=== PATIENT | female | born 1970 | race Caucasian/White ===

== ENCOUNTER 2018-09-03 09:21 | Day surgery (SDC) | payer OTHER ==
[2018-09-03] MEDS: CEFAZOLIN 2 GM/50 ML (PMX) 50 ML IVPB (11:44)
[2018-09-03] MEDS ORDERED: MIDAZOLAM 1 MG/ML 2 ML INJ (11:45)
[2018-09-03] MEDS ORDERED: FENTAnyl 50 MCG/ML VIAL (11:45)
[2018-09-03] MEDS ORDERED: BUPIVACAINE 0.5% (SDV) 30 ML INJ (11:51)
[2018-09-03] MEDS: BUPIVACAINE 0.5% (SDV) 30 ML INJ (12:14)
[2018-09-03] MEDS: LIDOCAINE 2% (MDV) 20 ML INJ (12:15)
[2018-09-03] MEDS ORDERED: FENTAnyl 50 MCG/ML VIAL IV ×2 (12:30)
[2018-09-03] MEDS ORDERED: MEPERIDINE 25 MG INJ IV (12:30)
[2018-09-03] MEDS ORDERED: METOCLOPRAMIDE 10 MG INJ IV (12:30)
[2018-09-03] MEDS ORDERED: hydrALAzine 20 MG INJ IV (12:30)
[2018-09-03] MEDS ORDERED: LABETALOL HCL 20MG INJ IV (12:30)
[2018-09-03] MEDS ORDERED: HYDROmorphONE 1 MG/5 ML IV SYRINGE IV ×2 (12:30)
[2018-09-03] MEDS ORDERED: ONDANSETRON 4 MG INJ IV (12:30)
[2018-09-03] MEDS: HYDROCODONE/APAP (10/325) TAB PO (13:30)
== END 2018-09-03 14:23 | disposition home or self-care (01) ==
LOC: SDS 09:21
DX: L60.0 Ingrowing nail (principal); L03.032 Cellulitis of left toe; L03.031 Cellulitis of right toe; D16.32 Benign neoplasm of short bones of left lower limb; D16.31 Benign neoplasm of short bones of right lower limb; E11.9 Type 2 diabetes mellitus without complications; I10 Essential (primary) hypertension; Z79.84 Long term (current) use of oral hypoglycemic drugs; Z79.4 Long term (current) use of insulin
CPT/HCPCS: 11750; 82962; 88304